=== PATIENT | female | born 1995 | race Caucasian/White ===

== ENCOUNTER → 2017-07-30 | Outpatient (REF) | payer BC ==
[2017-07-30 11:23] LABS: HEMATOCRIT 39.1 % (36.0-47.0); MEAN CORPUSCULAR HEMOGLOBIN 28.8 pg (27.0-33.0); MEAN CORPUSCULAR HGB CONC 33.2 g/dl (32.0-36.5); MEAN CORPUSCULAR VOLUME 86.5 fl (80.0-96.0); PLATELET COUNT, AUTOMATED 163 10^3/uL (150-450); RED BLOOD COUNT 4.52 10^6/uL (4.00-5.40); RED CELL DISTRIBUTION WIDTH 12.7 % (11.5-14.5); WHITE BLOOD COUNT 3.6 10^3/uL (4.0-10.0)
[2017-07-30 11:55] LABS: TOTAL 25(OH) VITAMIN D 42.2 NG/ML (30.0-100.0)
[2017-07-30 12:30] LABS: ALBUMIN 3.6 GM/DL (3.2-5.2); ALBUMIN/GLOBULIN RATIO 1.09 (1.00-1.93); ALKALINE PHOSPHATASE 57 U/L (45-117); ALT/SGPT 34 U/L (12-78); ANION GAP 9 MEQ/L (8-16); AST/SGOT 25 U/L (7-37); BILIRUBIN,TOTAL 0.4 MG/DL (0.2-1.0); BLOOD UREA NITROGEN 8 MG/DL (7-18); CALCIUM LEVEL 8.5 MG/DL (8.5-10.1); CARBON DIOXIDE LEVEL 26 MEQ/L (21-32); CHLORIDE LEVEL 107 MEQ/L (98-107); CHOLESTEROL LEVEL 131 MG/DL (<200); CHOLESTEROL RISK RATIO 1.794 (<5); CREATININE FOR GFR 0.81 MG/DL (0.55-1.30); GLOMERULAR FILTRATION RATE > 60.0 (>60); GLUCOSE, FASTING 74 MG/DL (70-100); HDL CHOLESTEROL 73 MG/DL (>40); LDL CHOLESTEROL 45.4 MG/DL (<100); NON-HDL-C 58 MG/DL; SODIUM LEVEL 142 MEQ/L (136-145); TOTAL PROTEIN 6.9 GM/DL (6.4-8.2); TRIGLYCERIDES LEVEL 63 MG/DL (<150)
[2017-07-31 11:09] LABS: RUBELLA IgG QUALITATIVE IMMUNE (IMMUNE)
[2017-07-31 11:12] LABS: HEPATITIS B SURFACE ANTIBODY POSITIVE (POSITIVE)
[2017-07-31 17:41] LABS: HERPES ZOSTER, VARICELLA IgG >4000 index (Immune >165)
== END ==
LOC: M SFHCCLAY 08:32
DX: Z11.59 Encounter for screening for other viral diseases (principal); Z13.0 Encounter for screening for diseases of the blood and blood-forming organs and certain disorders involving the immune mechanism; Z13.1 Encounter for screening for diabetes mellitus; Z13.6 Encounter for screening for cardiovascular disorders; Z13.21 Encounter for screening for nutritional disorder
CPT/HCPCS: 80053

== ENCOUNTER → 2017-08-06 | Outpatient (REF) | payer BC ==
[2017-08-08 10:16] LABS: RUBEOLA IgG ANTIBODY >300.0 AU/mL (Immune >29.9)
== END ==
LOC: M SFHCCLAY 13:53
DX: Z11.59 Encounter for screening for other viral diseases (principal)
CPT/HCPCS: 86765

== ENCOUNTER → 2017-08-15 | Outpatient (REF) | payer BC ==
[2017-08-18 00:06] LABS: HBV HBV DNA not detected IU/mL (.)
== END ==
LOC: M SFHCCLAY 10:54
DX: Z11.59 Encounter for screening for other viral diseases (principal)